=== PATIENT | female | born 1980 | race Hispanic/Latino ===

== ENCOUNTER 2017-11-04 09:12 | Emergency (ER) | payer MEDICAID | END 2017-11-04 10:14 | disposition home or self-care (01) | LOC: EDH 09:12 | DX: R10.9 Unspecified abdominal pain (principal); R20.2 Paresthesia of skin; E66.9 Obesity, unspecified; Z68.41 Body mass index [BMI] 40.0-44.9, adult | CPT/HCPCS: 99281 ==

== ENCOUNTER 2021-10-19 15:53 | Emergency (ER) | payer MEDICAID ==
[~2021-10-19] VITALS: Ht 165.1 cm; Wt 124.7 kg
[2021-10-19] MEDS ORDERED: ONDANSETRON 4MG INJ IVP ONE (18:30)
[2021-10-19] MEDS ORDERED: PHENAZOPYRIDINE HCL 200 MG TABLET PO ONE (18:30)
[2021-10-19] MEDS ORDERED: 0.9%NACL 1000ML 1,000 ML IV ONE (18:30)
[2021-10-19 18:44] LABS: BASOPHILS % (AUTO) 0.4 % (0.0-5.0); EOSINOPHILS % (AUTO) 3.7 % (0.0-8.0); HEMATOCRIT 44.4 % (36-48); LYMPHOCYTES % (AUTO) 18.3 % (21.0-51.0); MEAN CORPUSCULAR HEMOGLOBIN 25.7 pg (27.0-33.0); MEAN CORPUSCULAR HGB CONC 30.4 g/dL (32.0-36.0); MEAN CORPUSCULAR VOLUME 84.6 fL (79-99); MONOCYTES % (AUTO) 5.3 % (3.0-13.0); NEUTROPHILS % (AUTO) 71.8 % (40.0-77.0); PLATELET COUNT (AUTO) 297 K/uL (130-400); RED BLOOD CELL COUNT(AUTO) 5.25 MIL/uL (4.00-5.50); RED CELL DISTRIBUTION WIDTH 14.6 % (11.0-15.5); WHITE BLOOD COUNT (AUTO) 13.6 K/uL (4.8-10.8)
[2021-10-19 18:47] LABS: HCG,QUAL RESULT NEGATIVE (NEGATIVE)
[2021-10-19 18:52] LABS: APPEARANCE,URINE Turbid (CLEAR); BILIRUBIN,URINE Negative (NEGATIVE); CARBON DIOXIDE 29 mmol/L (21-32); CHLORIDE 104 mmol/L (101-111); COLOR,URINE Yellow (YELLOW); CREATININE 0.7 mg/dL (0.5-1.5); GLOMERULAR FILTR. RATE CALC 99 mL/min (>60); GLUCOSE, URINE (UA) Negative (NEGATIVE); GLUCOSE,RANDOM 98 mg/dL (70-105); KETONES,URINE Negative (NEGATIVE); LEUKOCYTE ESTERASE ,URINE Large (NEGATIVE); NITRATE,URINE Positive (NEGATIVE); OCCULT BLOOD,URINE Moderate (NEGATIVE); POTASSIUM 4.3 mmol/L (3.5-5.1); PROTEIN,URINE POS 1+ mg/dL (NEGATIVE); SODIUM SERUM 138 mmol/L (136-145); UREA NITROGEN, BLOOD 11 mg/dL (7-18); UROBILINOGEN,URINE 0.2 mg/dL (0.2-1.0)
[2021-10-19 19:00] LABS: ALANINE AMINOTRANSFERASE 26 U/L (12-78); ALBUMIN 3.4 g/dL (3.5-5.0); ASPARTATE AMINOTRANSFERASE 19 U/L (10-37); BILIRUBIN,TOTAL 0.2 mg/dL (0.2-1.0); TOTAL PROTEIN, SERUM 7.6 g/dL (6.0-8.3)
[2021-10-19 19:01] LABS: LIPASE < 50 U/L (114-286)
[2021-10-19 19:03] LABS: BACTERIA,URINE Moderate /HPF (None Seen); RBC,URINE 0-1 /HPF (0-1); WBC,URINE TNTC /HPF (0-1)
[2021-10-19] MEDS ORDERED: CEFTRIAXONE 1G VIAL IVP ONE (19:30)
[2021-10-19] MEDS ORDERED: D-ME1POW16 PO (19:36)
[2021-10-19] MEDS ORDERED: CEPH500B PO (19:36)
[2021-10-19] MEDS ORDERED: PHEN-846 PO (19:36)
[2021-10-19 20:12] VITALS: BP 158/93
== END 2021-10-19 20:00 | disposition home or self-care (01) ==
LOC: EDH 15:53
DX: N39.0 Urinary tract infection, site not specified (principal); E66.01 Morbid (severe) obesity due to excess calories; Z88.0 Allergy status to penicillin; Z86.16 Personal history of COVID-19; Z79.899 Other long term (current) drug therapy; Z88.6 Allergy status to analgesic agent; Z68.42 Body mass index [BMI] 45.0-49.9, adult
CPT/HCPCS: 36415; 80053; 81001; 81025; 83690; 85025; 87077; 87088; 87186; 96361; 96374; 99283; J2405; J7030

== ENCOUNTER 2023-07-01 14:31 | Emergency (ER) | payer MEDICAID ==
[~2023-07-01 14:31] MED LIST: CEPH500B PO; D-ME1POW16 PO; PHEN-846 PO
[2023-07-01 14:35] VITALS: BP 148/65; PULSE 89; RESP 16; O2SAT 99
[2023-07-01] MEDS ORDERED: ACETAMINOPHEN 500 MG TABLET PO ONE (15:00)
== END 2023-07-01 15:45 | disposition home or self-care (01) ==
LOC: EDH 14:31
DX: S63.91XA Sprain of unspecified part of right wrist and hand, initial encounter (principal); S83.91XA Sprain of unspecified site of right knee, initial encounter; J45.909 Unspecified asthma, uncomplicated; W18.39XA Other fall on same level, initial encounter; Y93.89 Activity, other specified; Y92.89 Other specified places as the place of occurrence of the external cause; Y99.8 Other external cause status
CPT/HCPCS: 73130; 73562

== ENCOUNTER 2025-10-20 02:53 | Emergency (ER) | payer SELFPAY ==
[~2025-10-20] VITALS: Ht 160 cm; Wt 113.4 kg
[2025-10-20 02:54] VITALS: TEMP 98.1
--- NOTE | 2025-10-20 03:02 | ERN ---
General Chief Complaint: Anxiety/Panic Attack Stated Complaint: CP, N/V Time Seen by MD: 02:56 Source: patient History of Present Illness Initial Comments Patient is a 45-year-old female coming in complaining of anxiety patient she felt really off because she never eats sugars and she ate of bread which she believes had sugar in it. She vomited and upon evaluation once in the room patient was more calm. Allergies: Coded Allergies: Penicillins (Unverified Allergy, Unknown, 10/19/21) ibuprofen (Unverified Allergy, Unknown, 10/19/21) Home Meds Active Scripts D-Methorphan/PE/Acetaminophen (Theraflu Ms Severe Cold Pckt) 1 Each Powd.pack, 1 EACH PO QID, #20 PACK Prov:SAVAGE ROBERTS 10/19/21 Phenazopyridine HCl (Pyridium) 100 Mg Tab, 100 MG PO TID for 3 Days, #9 TAB Prov:SAVAGE ROBERTS 10/19/21 Cephalexin Monohydrate (Keflex) 500 Mg Cap, 500 MG PO TID for 7 Days, #21 CAP Prov:SAVAGE ROBERTS 10/19/21 Past Medical History Past Medical History: Asthma, Other Medical History Other: GASTRITIS, morbid obese Past Surgical History: None ROS Dictation CONSTITUTIONAL: No chills, no fever, no weakness, no diaphoresis, no malaise. HEAD/FACE: No signs of trauma. EENT: No eye pain, no blurred vision, no tearing, no double vision, no ear pain, no ear discharge, no nose pain, no nasal congestion, no throat pain, no throat swelling, no mouth pain. RESPIRATORY: No cough, no orthopnea, no SOB, no stridor, no wheezing. CARDIOVASCULAR: No chest pain, no edema, no palpitations, no syncope. GASTROINTESTINAL/ABDOMINAL: No abdominal pain, no constipation, no diarrhea, no nausea, no vomiting. GENITOURINARY: No abnormal discharge, no dysuria, no frequent urination, no hematuria. No complaints of pain in the genitals. MUSCULOSKELETAL: No back pain, no gout, no joint pain, no joint swelling, no muscle pain, no muscle stiffness, no neck pain. INTEGUMENTARY: No change in color, no change in hair/nails, no dryness, no lesion, no lumps, no rash. NEUROLOGICAL/PSYCH: No anxiety, not depressed, no emotional problem, no headache, no numbness, no pre-existing deficit, no history of seizures, no tremors, no weakness. HEMATOLOGIC/LYMPHATIC: Not anemic, no history of blood clots, no apparent b leeding, no bruising, glands not swollen. All Systems Negative, Except as Noted. Physical Exam Physical Exam Dictation VITAL SIGNS: Reviewed. GENERAL APPEARANCE: Alert, oriented x3, no acute distress, obese. HEAD AND FACE: Non-traumatic. EYES: PERRL, pink conjunctivas, eyelid no trauma, anterior chamber clear. EARS: Pinnas intact and no signs of trauma or erythema. Ear canals clear and no discharge. TMs no erythema. NOSE: No discharge, no bleeding. OROPHARYNX: Mouth normal, teeth no caries, tongue pink. Pharynx clear, no erythema. Tonsils no exudates, no abscesses noted. Mucous membrane moist. NECK: Supple, non-tender, no thyromegaly, no masses, no JVD, no bruits. BREAST: Deferred. CHEST: No tenderness, no crepitus, no paradoxical movement, no retractions. LUNGS: Clear, well-ventilated, symmetric, no rales, no wheezing, no rhonchi, no stridor, good breath sounds bilaterally. HEART: Regular rate, regular rhythm, no murmur, no gallops. VASCULAR: No peripheral edema. ABDOMEN: Soft, positive bowel sounds, nondistended, no guarding, nontender, no rebound, no masses no hepatomegaly, no splenomegaly, no Hyde's sign, no hernias. RECTAL: Deferred. GENITAL: Deferred. NEUROLOGICAL: Normal speech, gross motor function intact, gross sensory function intact. MUSCULOSKELETAL: Neck nontender, full range of motion, back nontender, full ra nge of motion. EXTREMITIES: Nontender, full range of motion. SKIN: Color pink, dry, no turgor, no rash, no lacerations, no abrasions, no contusions. LYMPHATICS: Deferred. Results Laboratory and Microbiology Labs Reviewed?: Yes EKG/XRAY/US/CT/MRI EKG Comment 10/20/2025 time 2:59 a.m. Ventricular rate 85 Sinus rhythm OR [address] wave elevation or depression MDM MDM: Differential diagnosis: Anxiety, history of anxiety, Rationale: Tests considered and ordered secondary to shared decision making include: Previous outside records reviewed: Old ER visits. Risk of complication and/or morbidity or mortality of patient management: None Medications-Per medication reconciliation Need for hospitalization: Patient does not meet criteria for hospitalization. Need for emergency major/minor surgery: No Patient is a 45-year-old female coming in complaining of anxiousness after eating sugar. She states that she never he has trigger in today she has been sugar got released stress vomited once and upon evaluation in ER room she felt much better. Patient has a an EKG which was within normal limits. Patient will be discharged in stable condition. ED Course Orders Procedure Category Date Status Time 12 Lead Ekg Tracing- EKG 10/20/25 Complete Technical 02:59 12 Lead Ekg Tracing- EKG 10/20/25 Logged Technical 03:00 Vital Signs Date Time Temp Pulse Resp B/P (MAP) Pulse Ox O2 Delivery O2 Flow Rate FiO2 10/20/25 03:10 84 18 160/68 100 Room Air* 0 21 10/20/25 02:54 98.1 100 20 140/89 100 Room Air DX & DISP Disposition: Discharge Departure Impression: Primary Impression: Anxiety Condition: Stable Additional Instructions: FOLLOW-UP WITH PRIMARY CARE PROVIDER IN 1 TO 2 DAYS. TAKE MEDICATIONS DIRECTED HERE IN THE EMERGENCY ROOM. OKAY TO CONTINUE HOME MEDICATIONS UNLESS OTHERWISE DISCUSSED DURING YOUR VISIT IN THE EMERGENCY ROOM TODAY. RETURN TO YOUR NEAREST EMERGENCY ROOM IF SYMPTOMS WORSEN OR IF THERE IS NO IMPROVEMENT. CALL 911 IF YOU NEED IMMEDIATE ASSISTANCE. TAKE TYLENOL [id number] NEEDED AND IF NO CONTRAINDICATIONS ARE PRESENT. INCREASE ORAL HYDRATION. A WOUND CULTURE OR URINE CULTURE WAS ORDERED HERE IN THE EMERGENCY ROOM DEPARTMENT PLEASE FOLLOW-UP WITH PRIMARY CARE PROVIDER AND ADVISE THEM TO GET REPORTS FROM OUR FACILITY. IF YOU HAD ANY SAMAN WRAP/SPLINTS THAT WERE APPLIED HERE, PLEASE DO NOT REMOVE THEM UNTIL YOU SEE YOUR PRIMARY CARE OR SPECIALTY. Referrals: Referrals: SELF,REFERRAL (PCP) MARIE GRACIA MD Time of Disposition: 03:13 ZAIRE TREVINO MD Oct 20, 2025 03:02
--- NOTE | 2025-10-20 03:05 | EKG ---
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
[2025-10-20 03:10] VITALS: BP 160/68; PULSE 84; RESP 18; O2SAT 100
== END 2025-10-20 03:19 | disposition home or self-care (01) ==
LOC: EDH 02:53
DX: F41.9 Anxiety disorder, unspecified (principal); E66.01 Morbid (severe) obesity due to excess calories; J45.909 Unspecified asthma, uncomplicated; Z88.0 Allergy status to penicillin; Z88.6 Allergy status to analgesic agent
CPT/HCPCS: 93005; 99283